=== PATIENT | female | born 1975 | race Caucasian/White ===

== ENCOUNTER 2022-03-09 04:33 | Emergency (ER) | payer OTHER ==
[~2022-03-09] VITALS: Ht 154.9 cm; Wt 89.0 kg
[2022-03-09 04:40] VITALS: BP 175/92
[2022-03-09] MEDS ORDERED: IBUPROFEN 600MG TABLET PO ONE (05:30)
[2022-03-09] MEDS ORDERED: IBUP-2029 MT (05:32)
== END 2022-03-09 05:54 | disposition home or self-care (01) ==
LOC: ER 04:33
DX: S70.01XA Contusion of right hip, initial encounter (principal); W18.39XA Other fall on same level, initial encounter; Y93.89 Activity, other specified; Y92.89 Other specified places as the place of occurrence of the external cause; Y99.8 Other external cause status; Z90.49 Acquired absence of other specified parts of digestive tract
CPT/HCPCS: 99282